=== PATIENT | female | born 1965 | race African-American/Black ===

== ENCOUNTER 2023-06-10 05:42 | Emergency (ER) | payer MEDICAID, OTHER ==
[~2023-06-10] VITALS: Ht 172.7 cm; Wt 91.0 kg
[~2023-06-10 05:42] MED LIST: [UNRECOGNIZED DRUG - OTHER]
[2023-06-10 05:43] VITALS: O2SAT 98
[2023-06-10 06:00] VITALS: BP 142/84
[2023-06-10] MEDS ORDERED: OXYCODONE HCL/ACETAMINOPHEN 5/325MG TABLET PO ONE (06:00)
[2023-06-10] MEDS ORDERED: T3 PO (07:02)
[2023-06-10] MEDS ORDERED: IBUP-2028 PO (07:02)
[2023-06-10 07:14] VITALS: PULSE 76; RESP 16; TEMP 98
== END 2023-06-10 07:15 | disposition home or self-care (01) ==
LOC: ER 05:42
DX: M54.50 Low back pain, unspecified (principal)
CPT/HCPCS: 72100; 81025; 99283